=== PATIENT | female | born 1965 | race Caucasian/White ===

== ENCOUNTER 2016-06-18 21:46 | Emergency (ER) | payer BC ==
[~2016-06-18] VITALS: Ht 165.1 cm; Wt 100.3 kg
[~2016-06-18 21:46] MED LIST: FLM4 PO; INSU32MI13 SC; INSUINJ4 SQ; METF-382 PO
[2016-06-18 22:03] VITALS: TEMP 37; Ht 165.1 cm; Wt 100.3 kg
[2016-06-18] MEDS ORDERED: GLCSR/500 PO (22:36)
[2016-06-18] MEDS ORDERED: INSDGIPEN SC (22:36)
[2016-06-18] MEDS ORDERED: ONDANSETRON INJ 2 MG/ML 2 ML VIAL IV STA (22:42)
[2016-06-18] MEDS ORDERED: MoRPHine SULFATE 4 MG/ML 1 ML CARP\\VIAL IV STA (22:42)
[2016-06-18] MEDS ORDERED: SODIUM CHLORIDE 0.9% 1000ML 1,000 ML IV STA (22:42)
--- NOTE | 2016-06-18 22:58 | DIAGNOSTIC IMAGING REPORT ---
CHEST ONE VIEW PORTABLE CLINICAL HISTORY: CHEST PAIN dyspnea COMPARISON STUDY: No previous studies for comparison. FINDINGS: The bones soft tissues and hemidiaphragms are normal. The cardiomediastinal silhouette is normal. The lungs are clear. The pulmonary vasculature is normal. IMPRESSION: Negative chest. Electronically signed by: Edward Kennedy M.D. 06/18/2016 10:57 PM Dictated Date/Time: 06/18/2016 10:57 PM
[2016-06-18 23:12] LABS: BASO % 0.5 %; BASO ABS # 0.05 K/uL (0-0.2); COMPLETE YES; EOS % 2.7 %; HEMATOCRIT 37.1 % (37-47); IG% 0.2 %; LYMPH % 35.9 %; LYMPH ABS # 3.88 K/uL (1.2-3.4); MEAN CELL VOLUME 82.8 fL (80-100); MEAN CORPUSCULAR HEMOGLOBIN 28.1 pg (25-34); MEAN PLATELET VOLUME 8.9 fL (7.4-10.4); MONO % 6.1 %; NEUT % 54.6 %; PLATELET COUNT 375 K/uL (130-400); RED BLOOD COUNT 4.48 M/uL (4.2-5.4); WHITE BLOOD COUNT 10.82 K/uL (4.8-10.8)
[2016-06-18 23:29] LABS: ALT/SGPT 27 U/L (12-78); AST/SGOT 11 U/L (15-37); BLOOD UREA NITROGEN 11 mg/dl (7-18); BUN/CREATININE RATIO 13.4 (10-20); CALCIUM 8.6 mg/dl (8.5-10.1); CARBON DIOXIDE 28 mmol/L (21-32); CHLORIDE 104 mmol/L (98-107); CREATININE 0.82 mg/dl (0.60-1.20); GLUCOSE 116 mg/dl (70-99); POTASSIUM 3.9 mmol/L (3.5-5.1); SODIUM 141 mmol/L (136-145)
[2016-06-18 23:34] LABS: ALKALINE PHOSPHATASE 119 U/L (45-117)
[2016-06-19] MEDS ORDERED: OXYCODONE IR HOME PACK PO ONE (01:15)
[2016-06-19] MEDS ORDERED: ONDANSETRON HOME PACK 4MG OD TAB PO ONE (01:15)
[2016-06-19 01:21] VITALS: BP 111/56; PULSE 82; O2SAT 97
--- NOTE | 2016-06-19 02:13 | EMERGENCY ROOM VISIT NOTE ---
History First contact with patient: 22:38 Chief Complaint: RIB PAIN Stated Complaint: SHARP PAIN UNDER RIB CAGE History of Present Illness The patient is a 50 year old female who presents to the Emergency Room with complaints of right-sided abdomen and chest pain for the past month that is steadily getting worse. She describes the pain as aching, ranging in severity currently 6 out of 10. Nothing makes it better or worse. It does not radiate. Patient is concerned that this could be related to her gallbladder. Her sugars have been around 120 this week. Patient denies fever, chills, nausea, vomiting, diarrhea, back pain, dysuria, headache. Patient is tolerated by mouth fluids and food. She states she has had studies on her gallbladder before that showed some disease but did not need to come out. Review of Systems See HPI for pertinent positives & negatives. A total of 10 systems reviewed and were otherwise negative. Past Medical/Surgical History Medical Problems: (1) delivery delivered (2) Diabetes (3) Hydronephrosis of left kidney (4) Kidney stones (5) Left ureteral calculus Surgical Problems: (1) H/O lithotripsy (2) S/P hysterectomy Family History Diabetes mellitus Social History Smoking Status: Never Smoker Alcohol Use: none Marital Status: Housing Status: lives with family Occupation Status: employed Current/Historical Medications Scheduled Insulin Glargine (Lantus Solostar), 10 UNITS SC QPM Metformin HCl (Metformin HCl ER), 500 MG PO BID Allergies Coded Allergies: No Known Allergies (Verified , 05/14/15) Physical Exam Vital Signs Date Time Temp Pulse Resp B/P Pulse Ox O2 Delivery O2 Flow Rate FiO2 06/19/16 01:21 82 20 111/56 97 06/18/16 23:17 90 21 112/71 100 Room Air 06/18/16 22:55 Room Air 06/18/16 22:03 37.0 100 20 134/71 100 Room Air Pain Rating (0-10): 0 Physical Exam VITALS: Vitals are noted on the nurse's note and reviewed by myself. Vital signs stable. GENERAL: Pleasant female, in no acute distress, nondiaphoretic, well-developed well-nourished. SKIN: The skin was without rashes, erythema, edema, or bruising. There is no tenting of the skin. Capillary reflex less than 2 seconds. HEAD: Normocephalic atraumatic. EARS: External auditory canals clear, tympanic membranes pearly porter without erythema or effusion bilaterally. EYES: Pupils equal round and reactive to light and accommodation. Conjunctivae without injection, sclerae without icterus. Extraocular movements intact. NOSE: Patent, turbinates without inflammation or discharge. MOUTH: Mucous membranes moist. Pharynx without erythema or exudate. Uvula midline. Airway patent. Tongue does not deviate. NECK: Supple without nuchal rigidity. No lymphadenopathy. No thyromegaly. Cervical spine is nontender. No JVD. HEART: Regular rate and rhythm without murmurs gallops or rubs. LUNGS: Clear to auscultation bilaterally without wheezes, rales or rhonchi. No dullness to percussion. No retractions or accessory muscle use. ABDOMEN: Positive bowel sounds x 4. Normal tympanic percussion. Soft, protuberant, obese, tender to palpation right upper quadrant, no CVA tenderness , without masses or organomegaly. No guarding or rebound tenderness. MUSCULOSKELETAL: No muscle atrophy, erythema, or edema noted. NEURO: Patient was alert and oriented to person place and time. Normal sensation to light and sharp touch. No focal neurological deficits. Medical Decision & Procedures Laboratory Results 06/18/16 23:00 Red Blood Count 4.48, Mean Corpuscular Volume 82.8, Mean Corpuscular Hemoglobin 28.1, Mean Corpuscular Hemoglobin Concent 34.0, Mean Platelet Volume 8.9, Neutrophils (%) (Auto) 54.6, Lymphocytes (%) (Auto) 35.9, Monocytes (%) (Auto) 6.1, Eosinophils (%) (Auto) 2.7, Basophils (%) (Auto) 0.5, Neutrophils # (Auto) 5.92, Lymphocytes # (Auto) 3.88, Monocytes # (Auto) 0.66, Eosinophils # (Auto) 0.29, Basophils # (Auto) 0.05 06/18/16 23:00 Test 06/18/16 23:00 06/19/16 00:22 White Blood Count 10.82 K/uL (4.8-10.8) Red Blood Count 4.48 M/uL (4.2-5.4) Hemoglobin 12.6 g/dL (12.0-16.0) Hematocrit 37.1 % (37-47) Mean Corpuscular Volume 82.8 fL (80-100) Mean Corpuscular Hemoglobin 28.1 pg (25-34) Mean Corpuscular Hemoglobin Concent 34.0 g/dl (32-36) Platelet Count 375 K/uL (130-400) Mean Platelet Volume 8.9 fL (7.4-10.4) Neutrophils (%) (Auto) 54.6 % Lymphocytes (%) (Auto) 35.9 % Monocytes (%) (Auto) 6.1 % Eosinophils (%) (Auto) 2.7 % Basophils (%) (Auto) 0.5 % Neutrophils # (Auto) 5.92 K/uL (1.4-6.5) Lymphocytes # (Auto) 3.88 K/uL (1.2-3.4) Monocytes # (Auto) 0.66 K/uL (0.11-0.59) Eosinophils # (Auto) 0.29 K/uL (0-0.5) Basophils # (Auto) 0.05 K/uL (0-0.2) RDW Standard Deviation 40.2 fL (36.4-46.3) RDW Coefficient of Variation 13.2 % (11.5-14.5) Immature Granulocyte % (Auto) 0.2 % Immature Granulocyte # (Auto) 0.02 K/uL (0.00-0.02) D-Dimer 400 ug/L FEU (0-500) Anion Gap 9.0 mmol/L (3-11) Est Creatinine Clear Calc Drug Dose 96.3 ml/min Estimated GFR () 96.7 Estimated GFR (Non- 83.4 BUN/Creatinine Ratio 13.4 (10-20) Calcium Level 8.6 mg/dl (8.5-10.1) Total Bilirubin 0.2 mg/dl (0.2-1) Direct Bilirubin < 0.1 mg/dl (0-0.2) Aspartate Amino Transf (AST/SGOT) 11 U/L (15-37) Alanine Aminotransferase (ALT/SGPT) 27 U/L (12-78) Alkaline Phosphatase 119 U/L (45-117) Total Protein 7.8 gm/dl (6.4-8.2) Albumin 3.7 gm/dl (3.4-5.0) Lipase 190 U/L (73-393) Troponin I < 0.015 ng/ml (0-0.045) Medications Administered Medications (Trade) Dose Ordered Sig/Jonah Route Start Time Stop Time Status Last Admin Dose Admin Sodium Chloride (Nss 1000ml) 1,000 ml @ 125 mls/hr Q8H STAT IV 06/18/16 22:42 06/19/16 06:41 06/18/16 23:17 125 MLS/HR Ondansetron HCl (Zofran Inj) 4 mg NOW STAT IV 06/18/16 22:42 06/18/16 22:43 DC 06/18/16 23:16 4 MG Morphine Sulfate (MoRPHine SULFATE INJ) 4 mg NOW STAT IV 06/18/16 22:42 06/18/16 22:43 DC 06/18/16 23:17 4 MG Oxycodone HCl (Roxicodone Immediate Rel 5MG Home Pack) 1 homepack UD ONCE PO 06/19/16 01:15 06/19/16 01:16 DC 06/19/16 01:17 1 HOMEPACK Ondansetron HCl (ZOFRAN ODT 4MG Home Pack) 1 homepack UD ONCE PO 06/19/16 01:15 06/19/16 01:16 DC 06/19/16 01:17 1 HOMEPACK ED Course Prior records/ancillary studies reviewed. Triage Nursing notes reviewed. Additional history obtained from family. The patient's history was concerning for abdominal pain. Differential diagnosis: Etiologies such as appendicitis, cardiac, diverticulitis, PUD, biliary pathology , UTI, pancreatitis, obstruction, mesenteric ischemia, aortic pathology, infections, inflammatory bowel disease, renal colic, as well as others were entertained. Physical examination findings: As above. ER treatment provided: Morphine, Zofran On reassessment the patient felt better. Diagnostics interpreted by me: ECG: Normal sinus, normal intervals, no acute ST-T wave changes. Impression normal sinus rhythm interpreted by myself The labs revealed negative d-dimer. Negative troponin 22 hours apart Imaging studies: US GALLBLADDER: The liver measures 15.7 cm with mildly increased parenchymal echogenicity compatible with steatosis. There is a 1.2 cm anechoic region in the left hepatic lobe suggesting hepatic cyst. There is minimal sludge in the gallbladder. There is no gallbladder wall thickening or pericholecystic fluid. Common bile duct measures 6 mm. No findings to suggest acute cholecystitis. Right kidney is unremarkable. Radiologist: Mayra Castellano M.D. Chest x-ray with no acute consolidation, free air or pneumothorax per my interpretation Exam and history seem consistent with biliary colic. Patient was advised to do bland diet and avoid fatty foods. She is advised follow-up family care for further workup on her gallbladder such as a hida scan this week or here in the ER sooner for abdominal pain, fevers, vomiting, worsening signs or symptoms or as needed. By the evaluation outlined above emergent etiologies such as appendicitis, diverticulitis, PUD, UTI, pancreatitis, obstruction, mesenteric ischemia, aortic pathology, infections, inflammatory bowel disease, renal colic, as well as others were deemed relatively unlikely. The pt informed about the findings as listed above. All questions were answered and pleased with the treatment. Return instructions were outlined and the patient was discharged in stable condition. Outpatient prescription management: OxyIR, Zofran Referral: The patient was referred back to their primary care physician for follow-up in 2 to 3 days for a recheck of the current condition. Case reviewed with my attending Medical Decision As above Impression Primary Impression: Biliary colic Departure Information Dispostion Home / Self-Care Condition GOOD Forms WORK / SCHOOL INSTRUCTIONS, HOME CARE DOCUMENTATION FORM, IMPORTANT VISIT INFORMATION Patient Instructions Gallbladder Surg, My [facility] Additional Instructions Recommend avoid fatty or fried foods as this can flare up the gallbladder. Recommend outpatient hida scan with family care DrSujit for further workup on your gallbladder. Ibuprofen(Motrin, Advil) may be used for fever or pain. Use 600mg every six hours as needed. Take with food. Avoid using more than 2400mg in a 24 hour period. Do not use 2400mg per day for more than three consecutive days without physician direction. Prolonged inappropriate use can lead to stomach upset or ulcers. (AND/OR) Acetaminophen(Tylenol) may be used for fever or pain. Use 1000mg every six hours as needed. Avoid using more than 3000mg in a 24 hour period. Rest and drink plenty of fluids as tolerated. Continue current medications. Avoid strenuous activities and anything that worsens your pain. Resume normal activities once your symptoms resolve. Return to the ER immediately for worsening or persistent abdominal pain, vomiting, fevers, chest pains, difficulty breathing, worsening of your condition , or as needed. Follow up with your primary physician in 2-3 days for a recheck of your current condition.
--- NOTE | 2016-06-19 07:13 | DIAGNOSTIC IMAGING REPORT ---
ULTRASOUND RIGHT UPPER QUADRANT ABDOMEN CLINICAL HISTORY: Right upper quadrant abdominal pain. COMPARISON STUDY: Abdominal CT dated 05/15/2015. TECHNIQUE: Real-time, grayscale, and color flow sonography of the right upper quadrant of the abdomen was performed. Images are reviewed in the transverse and longitudinal planes. FINDINGS: Liver: The liver is top normal in size and demonstrates heterogeneously increased echotexture consistent with hepatic steatosis. There is no intrahepatic biliary ductal dilatation. The main portal vein is patent. A 12 mm cyst is incidentally noted in the left lobe. Gallbladder: The gallbladder is normal in appearance. No gallstones are identified. There is no gallbladder wall thickening or pericholecystic fluid. A sonographic Lima's sign is reportedly absent. The common bile duct measures up to 0.5 cm in diameter. Pancreas: Visualized portions of the pancreatic head and body are normal in appearance. The splenic vein is patent. Right kidney: Survey images of the right kidney demonstrate normal size and echotexture. There is no hydronephrosis. Ascites: None. IMPRESSION: 1. No acute sonographic abnormality is identified in the right upper quadrant. No gallstones are seen. 2. Hepatic steatosis. Electronically signed by: Edgard Lau M.D. 06/19/2016 7:12 AM Dictated Date/Time: 06/19/2016 7:09 AM
== END 2016-06-19 01:21 | disposition home or self-care (01) ==
LOC: C.EDB 21:47
DX: K80.50 Calculus of bile duct without cholangitis or cholecystitis without obstruction (principal); E11.9 Type 2 diabetes mellitus without complications; E66.9 Obesity, unspecified; Z79.4 Long term (current) use of insulin; Z83.3 Family history of diabetes mellitus; Z68.36 Body mass index [BMI] 36.0-36.9, adult

== ENCOUNTER → 2016-06-27 | Outpatient (CLI) | payer BC ==
[~2016-06-27] MED LIST changes: -FLM4 PO; +GLCSR/500 PO; +INSDGIPEN SC; -INSU32MI13 SC; -INSUINJ4 SQ; -METF-382 PO; +SINCALIDE INJ 2 MCG in SODIUM CHLORIDE 0.9% 100ML 100 ML IV SCH
--- NOTE | 2016-06-27 10:18 | DIAGNOSTIC IMAGING REPORT ---
NUCLEAR HEPATOBILIARY SCAN WITH EJECTION FRACTION IMAGING CLINICAL HISTORY: Right upper quadrant abdominal pain. COMPARISON STUDY: Abdominal ultrasound dated 06/18/2016. TECHNIQUE: Dynamic images of the liver and anterior abdomen were obtained every 5 minutes for a total of 60 minutes following the IV administration of 5.4mCi of technetium 99m Choletec. 2.0 mcg of sincalide was then injected with additional images acquired every 5 minutes for 45 minutes to calculate the gallbladder ejection fraction. FINDINGS: The hepatobiliary scan shows prompt and homogeneous hepatic uptake. There is visualized activity within the intra and extrahepatic biliary tree at 10 minutes, and within the gallbladder at 35 minutes. There is normal biliary to bowel transit, with small bowel visualized by 15 minutes. On the sincalide imaging, the gallbladder ejection fraction was measured at 91%. IMPRESSION: 1. Unremarkable nuclear hepatobiliary scan. There is no scintigraphic evidence of cholecystitis. 2. The gallbladder ejection fraction measured 91% which is normal. Electronically signed by: Edgard Lau M.D. 06/27/2016 10:17 AM Dictated Date/Time: 06/27/2016 10:16 AM
== END | disposition home or self-care (01) ==
LOC: C.NUCL 07:23
PROVIDERS: ATTEND Nurse Practitioner Family
DX: R10.11 Right upper quadrant pain (principal); E11.9 Type 2 diabetes mellitus without complications

== ENCOUNTER 2017-07-22 14:59 | Emergency (ER) | payer BC, OTHER ==
[~2017-07-22] VITALS: Ht 162.6 cm; Wt 97.9 kg
[2017-07-22 15:14] VITALS: Ht 162.6 cm; Wt 97.9 kg
--- NOTE | 2017-07-22 17:21 | EMERGENCY ROOM VISIT NOTE ---
History Report prepared by Ashlyn: Fortunato Irvin Under the Supervision of: Dr. Corby Covington M.D. First contact with patient: 17:00 Chief Complaint: ILLNESS Stated Complaint: DIZZINESS, ALMOST PASSED OUT EARLIER, FEVER History of Present Illness The patient is a 51 year old white female with a history of diabetes mellitus, who presents to the Emergency Room with complaints of persistent common-cold symptoms that began on Friday, 4 days ago. The patient is currently complaining of global aches, fevers/chills, and a sore throat. Nothing seems to improve/ worsen her symptoms. The patient also notes that she gets dizzy and nauseous when she stands up. She has not vomited at all. The patient was out of town until Friday evening, but states that she has not left her bed since returning home. She did not get a flu shot this year. Source of History: patient Onset: 4 days ago Quality: ache Timing: other (Persistent) Modifying Factors (Worsening): other (N/A) Modifying Factors (Relieving): other (N/A) Associated Symptoms: + sorethroat, + cough, + nausea, No vomiting Note: Dizziness. Review of Systems See HPI for pertinent positives and negatives. A total of ten systems were reviewed and were otherwise negative. Past Medical & Surgical Medical Problems: (1) delivery delivered (2) Diabetes (3) Hydronephrosis of left kidney (4) Kidney stones (5) Left ureteral calculus Surgical Problems: (1) H/O lithotripsy (2) S/P hysterectomy Family History Diabetes mellitus Social History Smoking Status: Never Smoker Alcohol Use: none Marital Status: Housing Status: lives with family Occupation Status: employed Current/Historical Medications Scheduled Insulin Glargine (Lantus Solostar), 10 UNITS SC DAILY Lisinopril (Lisinopril), 2.5 MG PO DAILY Metformin HCl (Metformin HCl ER), 500 MG PO BID Allergies Coded Allergies: No Known Allergies (Verified , 07/22/17) Physical Exam Vital Signs Date Time Temp Pulse Resp B/P (MAP) Pulse Ox O2 Delivery O2 Flow Rate FiO2 07/22/17 18:38 37.7 101 22 104/62 98 Room Air 07/22/17 18:12 105 07/22/17 17:23 117 16 132/90 98 Room Air 07/22/17 15:14 38.4 131 20 153/91 95 Room Air Physical Exam GENERAL: Awake, alert, well-appearing, NAD HENT: Normocephalic, atraumatic. EYES: Normal conjunctiva. Sclera non-icteric. NECK: Supple. No nuchal rigidity. FROM. No stridor from the anterior neck. Oropharynx clear. RESPIRATORY: CTAB, no rhonchi, wheezing, crackles CARDIAC: Tachycardic, regular rate, no MRG ABDOMEN: Soft, NTND, BS+ MSK: No chest wall TTP, no LE edema NEURO: GCS 15, CN 2-12 intact, moves all 4s on command SKIN: No rash or jaundice noted. Medical Decision & Procedures ER Provider Diagnostic Interpretation: Radiology results as stated below per my review and radiologist interpretation: CHEST ONE VIEW PORTABLE CLINICAL HISTORY: Evaluate Fever/Sepsis COMPARISON STUDY: Chest radiograph June 18, 2016. FINDINGS: There is mild elevation of the right hemidiaphragm. No pneumothorax or pleural effusion is noted. There is no evidence for pulmonary edema. Cardiomediastinal silhouette is unremarkable. IMPRESSION: No acute cardiopulmonary findings. Electronically signed by: Mal Jasso M.D. 07/22/2017 6:13 PM Dictated Date/Time: 07/22/2017 6:13 PM Laboratory Results 07/22/17 17:35 Red Blood Count 5.04, Mean Corpuscular Volume 81.5, Mean Corpuscular Hemoglobin 27.8, Mean Corpuscular Hemoglobin Concent 34.1, Mean Platelet Volume 9.2, Neutrophils (%) (Auto) 57.9, Lymphocytes (%) (Auto) 32.5, Monocytes (%) (Auto) 9.0, Eosinophils (%) (Auto) 0.2, Basophils (%) (Auto) 0.4, Neutrophils # (Auto) 3.11, Lymphocytes # (Auto) 1.74, Monocytes # (Auto) 0.48, Eosinophils # (Auto) 0.01, Basophils # (Auto) 0.02 07/22/17 17:35 Test 07/22/17 17:33 07/22/17 17:35 Influenza Type A Antigen Neg for Influ A (NEG) Influenza Type B Antigen POS for Influ B (NEG) White Blood Count 5.36 K/uL (4.8-10.8) Red Blood Count 5.04 M/uL (4.2-5.4) Hemoglobin 14.0 g/dL (12.0-16.0) Hematocrit 41.1 % (37-47) Mean Corpuscular Volume 81.5 fL (80-100) Mean Corpuscular Hemoglobin 27.8 pg (25-34) Mean Corpuscular Hemoglobin Concent 34.1 g/dl (32-36) Platelet Count 227 K/uL (130-400) Mean Platelet Volume 9.2 fL (7.4-10.4) Neutrophils (%) (Auto) 57.9 % Lymphocytes (%) (Auto) 32.5 % Monocytes (%) (Auto) 9.0 % Eosinophils (%) (Auto) 0.2 % Basophils (%) (Auto) 0.4 % Neutrophils # (Auto) 3.11 K/uL (1.4-6.5) Lymphocytes # (Auto) 1.74 K/uL (1.2-3.4) Monocytes # (Auto) 0.48 K/uL (0.11-0.59) Eosinophils # (Auto) 0.01 K/uL (0-0.5) Basophils # (Auto) 0.02 K/uL (0-0.2) RDW Standard Deviation 38.1 fL (36.4-46.3) RDW Coefficient of Variation 12.7 % (11.5-14.5) Immature Granulocyte % (Auto) 0.0 % Immature Granulocyte # (Auto) 0.00 K/uL (0.00-0.02) Anion Gap 8.0 mmol/L (3-11) Est Creatinine Clear Calc Drug Dose 72.0 ml/min Estimated GFR () 71.2 Estimated GFR (Non- 61.4 BUN/Creatinine Ratio 9.6 (10-20) Calcium Level 8.6 mg/dl (8.5-10.1) Laboratory results reviewed by me Medications Administered Medications (Trade) Dose Ordered Sig/Jonah Route Start Time Stop Time Status Last Admin Dose Admin Sodium Chloride 1,000 ml @ 2,000 mls/hr Q30M ONCE IV 07/22/17 17:25 07/22/17 17:54 DC 07/22/17 17:46 2,000 MLS/HR Acetaminophen (Tylenol Tab) 1,000 mg NOW STAT PO 07/22/17 17:25 07/22/17 17:28 DC 07/22/17 17:44 1,000 MG Ketorolac Tromethamine (Toradol Inj) 30 mg NOW STAT IV 07/22/17 17:25 07/22/17 17:28 DC 07/22/17 17:44 30 MG Ondansetron HCl (Zofran Inj) 4 mg NOW STAT IV 07/22/17 17:25 07/22/17 17:28 DC 07/22/17 17:44 4 MG ECG Per My Interpretation Indication: nausea, other (Dizzy) Rate (beats per minute): 112 Rhythm: sinus tachycardia Findings: Q waves (single q-wave in lead 3. No other STS or TWI), other ( Normal intervals, LAS) ED Course 1715: The patient was evaluated in room A9. A complete history and physical exam was performed. 172: Ordered Zofran 4 mg IV, Toradol 30 mg IV, Tylenol 1000 mg PO, Sodium Chloride 1000 mL @ 2000 mL/hr IV. 1905: Ordered Menthol 1 low. 1900: I reevaluated the patient. Discussed results and discharge instructions: she verbalized understanding and agreement. The patient is ready for discharge. 1914: Ordered Benzonatate 100 mg PO. Medical Decision The patient is a 51 year old white female with a history of diabetes mellitus, who presents to the Emergency Room with complaints of persistent common-cold symptoms that began on Friday, 4 days ago. DDx includes but is not limited to: URI, influenza, bronchitis, DKA, gastritis Prior records were reviewed. Patient was seen and evaluated the bedside. Patient states that she has been having some persistent body aches, fever, nausea, and sore throat. Patient states this been ongoing since Friday. Patient states that she is starting medications at home but they have not improved. Patient did have blood work completed, including influenza and chest x-ray. Patient's chest x-ray clear. Patient was given medications for symptom control as well as IV fluids. Patient's tachycardia improved. Patient did have a positive flu swab. Most likely etiology of her symptoms are likely consistent with influenza. The patient was told of the findings. Patient is outside the treatment window for Tamiflu. Anion gap is normal and so is the bicarb. Less likely DKA. Patient was given instructions to help with dehydration as well as symptom control. Patient was deemed suitable for outpatient follow-up and treatment at this time. Patient was given strict follow-up, discharge, and return precautions. All questions were answered. Patient was deemed suitable for outpatient follow-up at this time. Patient agreed with the plan of care and was safely discharged home. Impression Primary Impression: Influenza B Additional Impressions: Dehydration Fever Scribe Attestation The scribe's documentation has been prepared under my direction and personally reviewed by me in its entirety. I confirm that the note above accurately reflects all work, treatment, procedures, and medical decision making performed by me. Departure Information Dispostion Home / Self-Care Referrals Stephanie Collins (PCP) Patient Instructions ED Dehydration, ED Fever Control, ED Flu, [facility] Additional Instructions Please return to the emergency department if you have worsening or recurrent symptoms not amenable to at-home treatment. Please call for a follow-up appointment with her primary care physician. Please take your medications as prescribed. If you have other concerns and/or complaints please feel free to also call your primary care physician's office or return the ED for further evaluation, management, and treatment. You may take 600 mg Ibuprofen every 6 hours as needed for pain with food for no more than 2 consecutive days. You may take tylenol 1000 mg every 6 hours as needed for pain. You may take motrin and tylenol separately or at the same time. Consider Tessalon Perles and/or Cepacol to help with cough suppression. Take your medications as prescribed. You have been examined and treated today on an emergency basis only. This is not a substitute for, or an effort to provide, complete comprehensive medical care. It is impossible to recognize and treat all injuries or illnesses in a single emergency department visit. It is therefore important that you follow up closely with [facility], your PCP, and/or your specialist(s). Call as soon as possible for an appointment. Thank you for your time and consideration. I look forward to speaking with you again soon. Please don't hesitate to call us if you have any questions. Problem Qualifiers Additional Impressions: Fever Fever type: unspecified Qualified Codes: R50.9 - Fever, unspecified
[2017-07-22] MEDS ORDERED: KETOROLAC TROMETHAMINE 30 MG/ML VIAL IV STA (17:25)
[2017-07-22] MEDS ORDERED: SODIUM CHLORIDE 0.9% 1000ML 1,000 ML IV ONE (17:25)
[2017-07-22] MEDS ORDERED: ACETAMINOPHEN 500 MG TAB PO STA (17:25)
[2017-07-22] MEDS ORDERED: ONDANSETRON INJ 2 MG/ML 2 ML VIAL IV STA (17:25)
[2017-07-22] MEDS ORDERED: LSN25 PO (17:35)
[2017-07-22 17:48] LABS: BASO % 0.4 %; BASO ABS # 0.02 K/uL (0-0.2); EOS % 0.2 %; EOS ABS # 0.01 K/uL (0-0.5); HEMATOCRIT 41.1 % (37-47); LYMPH % 32.5 %; LYMPH ABS # 1.74 K/uL (1.2-3.4); MEAN CELL VOLUME 81.5 fL (80-100); MEAN CORPUSCULAR HEMOGLOBIN 27.8 pg (25-34); MEAN CORPUSCULAR HGB CONC 34.1 g/dl (32-36); MEAN PLATELET VOLUME 9.2 fL (7.4-10.4); MONO ABS # 0.48 K/uL (0.11-0.59); NEUT % 57.9 %; NEUT ABS # 3.11 K/uL (1.4-6.5); PLATELET COUNT 227 K/uL (130-400); RED CELL DISTRIBUTION WIDTH CV 12.7 % (11.5-14.5); RED CELL DISTRIBUTION WIDTH SD 38.1 fL (36.4-46.3); WHITE BLOOD COUNT 5.36 K/uL (4.8-10.8)
[2017-07-22 18:05] LABS: CALCIUM 8.6 mg/dl (8.5-10.1); CREATININE 1.05 mg/dl (0.60-1.20); POTASSIUM 3.8 mmol/L (3.5-5.1)
--- NOTE | 2017-07-22 18:14 | DIAGNOSTIC IMAGING REPORT ---
CHEST ONE VIEW PORTABLE CLINICAL HISTORY: Evaluate Fever/Sepsis COMPARISON STUDY: Chest radiograph June 18, 2016. FINDINGS: There is mild elevation of the right hemidiaphragm. No pneumothorax or pleural effusion is noted. There is no evidence for pulmonary edema. Cardiomediastinal silhouette is unremarkable. IMPRESSION: No acute cardiopulmonary findings. Electronically signed by: Mal Jasso M.D. 07/22/2017 6:13 PM Dictated Date/Time: 07/22/2017 6:13 PM
[2017-07-22 18:37] LABS: INFLUENZA B ANTIGEN POS for Influ B (NEG)
[2017-07-22] MEDS ORDERED: COUGH DROP (SUGAR FREE) LOZ 24 LOZ/1 BOX LOZ STA (19:06)
[2017-07-22] MEDS ORDERED: BENZONATATE 100MG CAP PO ONE (19:15)
[2017-07-22 19:41] VITALS: BP 117/76; PULSE 95; TEMP 37.6; O2SAT 96
[2017-07-22] MEDS ORDERED: INSDGIPEN SC (22:36)
[2017-07-22] MEDS ORDERED: GLCSR/500 PO (22:36)
== END 2017-07-22 20:00 | disposition home or self-care (01) ==
LOC: C.EDB 15:01 → C.EDA 20:00
DX: J10.1 Influenza due to other identified influenza virus with other respiratory manifestations (principal); E86.0 Dehydration; R50.9 Fever, unspecified; E11.9 Type 2 diabetes mellitus without complications; Z87.442 Personal history of urinary calculi; Z83.3 Family history of diabetes mellitus; Z79.4 Long term (current) use of insulin; Z79.899 Other long term (current) drug therapy